=== PATIENT | male | born 1940 | race Caucasian/White ===

== ENCOUNTER 2019-09-11 21:39 | Emergency (ER) | payer MEDICARE ==
--- NOTE | 2019-09-11 22:47 | ED Physician Documentation ---
PD HPI HEAD INJURY - Stated complaint Stated Complaint: CANT SLEEP/FALL/NECK PX - Chief complaint Chief Complaint: Trauma Hd/Nk - History obtained from History obtained from: Patient - History of Present Illness Mechanism of head injury: Fell Where head injury occurred: Home Timing - onset: Enter time (1400), Today Location of injury: Back Quality of pain: Pain Associated symptoms: Neck pain, Other (dizziness and headache). No: LOC, AMS, Amnesia, Nausea / vomiting, Paresthesias, Seizures, Ear drainage, Nasal drainage Symptoms improve with: Rest Symptoms worsen with: Palpation, Movement Contributing factors: No: Anticoagulated Similar symptoms before: Has not had sx before Recently seen: Not recently seen - Additional information Additional information: Previously well 79-year-old male was out on a walk he attempted to do some social distancing when talking to somebody he backed up and fell over backwards onto his side down a hill. He hit the back of his head he did not have any loss of consciousness associated with this but he does have some dizziness associated with it headache and he denies nausea or difficulty concentrating. This occurred at 2 PM. The patient in addition notes that he has had trouble sleeping for the past 3 nights as he is recently started escitalopram. He was starting this for anxiety. He also started tamsulosin at the same time. He has been unable to sleep the past 3 nights because each time he rolls over he has to get up to go to the bathroom. He states that he has been able to quell this issue with getting up to go to the bathroom by taking 10 mg of THC at night. He stopped this about 3 nights ago. He is decided he will stop his escitalopram today.He does state that he does not feel that he has urinary tract infection he has never had an infection previously and he does not feel that he has any pain with urination just an irritation caused by movement that he has had previously. Review of Systems Constitutional: denies: Fever, Chills, Myalgias Eyes: denies: Decreased vision Ears: denies: Ear pain Nose: denies: Rhinorrhea / runny nose, Congestion Throat: denies: Sore throat Cardiac: denies: Chest pain / pressure, Palpitations Respiratory: denies: Dyspnea, Cough GI: denies: Abdominal Pain, Nausea, Vomiting : reports: Frequency. denies: Dysuria Skin: denies: Rash Musculoskeletal: reports: Neck pain. denies: Back pain, Extremity pain Neurologic: denies: Generalized weakness, Focal weakness, Numbness PD PAST MEDICAL HISTORY - Past Medical History Past Medical History: Yes Cardiovascular: High cholesterol - Past Surgical History Past Surgical History: Yes - Present Medications Home Medications: Ambulatory Orders Medication Instructions Recorded Confirmed Aspirin 81 mg PO 03/31/13 03/31/13 Pravastatin Sodium 10 mg PO 03/31/13 03/31/13 Meclizine HCl [Medi-Meclizine] 25 - 50 mg PO Q6HR PRN #20 tablet 04/01/13 Cyclobenzaprine [Flexeril] 10 mg PO TID PRN #20 tablet 09/12/19 Hydrocodone/Acetaminophen 1 - 2 each PO Q6H PRN #14 tablet 09/12/19 [Hydrocodon-Acetaminophen 5-325] - Allergies Allergies/Adverse Reactions: Allergies Allergy/AdvReac Type Severity Reaction Status Date / Time No Known Drug Allergies Allergy Verified 09/11/19 21:46 - Social History Does the pt smoke?: No Smoking Status: Never smoker Does the pt drink ETOH?: Yes Does the pt have substance abuse?: Yes Substance Use and Type: Marijuana - Immunizations Immunizations are current?: Yes - POLST Patient has POLST: No PD ED PE NORMAL - Vitals Vital signs reviewed: Yes (hypertensive) - General General: Alert and oriented X 3, No acute distress, Well developed/nourished - HEENT HEENT: PERRL, EOMI, Other (There is no ecchymosis swelling or specific point tenderness to the back of the head. The patient is unable to discern exactly where his head hit. He does have general headache. TMs are both obscured by cerumen.) - Neck Neck: Supple, no meningeal sign, No bony TTP, Other (There is tenderness to the paraspinous muscles of the neck especially lower.) - Cardiac Cardiac: RRR, No murmur - Respiratory Respiratory: No respiratory distress, Clear bilaterally - Abdomen Abdomen: Soft, Non tender - Back Back: No CVA TTP, No spinal TTP - Derm Derm: Normal color, Warm and dry, No rash - Extremities Extremities: No deformity, No edema, No calf tenderness / cord - Neuro Neuro: Alert and oriented X 3, home care rn 2-12 intact, No motor deficit, No sensory deficit, Normal speech Eye Opening: Spontaneous Motor: Obeys Commands Verbal: Oriented GCS Score: 15 - Psych Psych: Normal mood, Normal affect Results - Vitals Vitals: Vital Signs - 24 hr 09/11/19 09/11/19 21:46 23:06 Temperature 36.7 C Heart Rate 75 63 Respiratory 14 18 Rate Blood Pressure 167/89 H 160/83 H O2 Saturation 99 100 Oxygen O2 Source Room air - Labs Labs: Laboratory Tests 09/11/19 23:25 Urine Color YELLOW Urine Clarity CLEAR Urine pH 6.5 Ur Specific [place] 1.020 Urine Protein NEGATIVE Urine Glucose (UA) NEGATIVE Urine Ketones TRACE Urine Occult Blood SMALL H Urine Nitrite NEGATIVE Urine Bilirubin NEGATIVE Urine Urobilinogen 0.2 (NORMAL) Ur Leukocyte Esterase NEGATIVE Urine RBC 0-5 Urine WBC 0-3 Ur Squamous Epith Cells NONE SEEN Urine Bacteria None Seen Ur Microscopic Review INDICATED Urine Culture Comments NOT INDICATED - Rads (name of study) CT cervical spine Radiology: Prelim report reviewed (Impression: 1. No acute fracture. 2. Severe spondylolysis.), EMP read indepedently, See rad report CT head without Radiology: Prelim report reviewed (Impression: 1. No acute intracranial abnormality. Age-appropriate exam. 2. Mild midline posterior parietal scalp soft tissue swelling without underlying fracture.), EMP read indepedently, See rad report PD MEDICAL DECISION MAKING - ED course Complexity details: reviewed old records, reviewed results, re-evaluated patient, considered differential, d/w patient ED course: 79-year-old male with a fall onto the back of his head with persistent dizziness and headache has a negative CT of his head and neck and his complaint of urinary frequency is likely as he describes it related to movement causing irritation of the prostate. His urinalysis is negative. He will resume his prior use of THC for sleep. He is given instructions for concussion. His chief complaint at this point is neck pain and this is bad enough that he requests medications for pain. He is sent home with a prepack for Flexeril and Vicodin. Departure - Departure Disposition: 01 Home, Self Care Clinical Impression: Concussion Qualifiers: Encounter type: initial encounter Loss of consciousness presence/duration: without LOC Qualified Code(s): S06.0X0A - Concussion without loss of consciousness, initial encounter Cervical strain, acute Qualifiers: Encounter type: initial encounter Qualified Code(s): S16.1XXA - Strain of muscle, fascia and tendon at neck level, initial encounter Condition: Stable Instructions: ED Concussion, ED Sprain Strain Neck Follow-Up: Rigo Rivas MD [Primary Care Provider] - Prescriptions: Cyclobenzaprine [Flexeril] 10 mg PO TID PRN #20 tablet PRN Reason: Spasms Hydrocodone/Acetaminophen [Hydrocodon-Acetaminophen 5-325] 1 - 2 each PO Q6H PRN #14 tablet PRN Reason: pain
[2019-09-11 23:37] LABS: BILIRUBIN,URINE NEGATIVE (NEGATIVE); GLUCOSE, URINE (UA) NEGATIVE (NEGATIVE); KETONES,URINE (UA) TRACE mg/dL (NEGATIVE); LEUKOCYTE ESTERASE, URINE NEGATIVE (NEGATIVE); NITRITE,URINE NEGATIVE (NEGATIVE); OCCULT BLOOD,URINE SMALL (NEGATIVE); PH,URINE 6.5 PH (5.0-7.5); PROTEIN,URINE NEGATIVE (NEGATIVE); UROBILINOGEN,URINE 0.2 (NORMAL) E.U./dL (NORMAL)
[2019-09-11 23:38] LABS: CLARITY,URINE CLEAR (CLEAR)
[2019-09-11 23:46] LABS: BACTERIA,URINE None Seen /HPF (None Seen); RBC,URINE 0-5 /HPF (0-5); SQUAMOUS EPITHELIAL CELL,UR NONE SEEN (<= Few)
[2019-09-12] MEDS ORDERED: HYDROcod/ACET 5/325 Prepack 4 PO STA (00:07)
[2019-09-12] MEDS ORDERED: CYCLOBENZAPRINE 10 MG Prepack 2 PO PRN (00:07)
[2019-09-12 00:39] VITALS: BP 143/78
--- NOTE | 2019-09-12 07:37 | CT Report ---
PROCEDURE: HEAD WO INDICATIONS: polytrauma, critical, head TECHNIQUE: Noncontrast 4.5 mm thick angled axial sections acquired from the foramen magnum to the vertex. For r adiation dose reduction, the following was used: automated exposure control, adjustment of mA and/or kV according to patient size. COMPARISON: CT head 03/31/2013, MR brain 04/01/2013. FINDINGS: Image quality: Excellent. The ventricular system and cortical sulci demonstrate atrophy, consistent for patient's stated age. There are areas of hypodensity in the periventricular and subcortical white matter. There is no acut e intra or extra-axial fluid collection. No acute hemorrhage, mass lesion or midline shift. Brainst em is unremarkable. There Globes are symmetrical. Sinuses demonstrate minimal frontal and ethmoid m ucosal thickening. Osseous structures are intact. Posterior scalp soft tissue edema is present. IMPRESSION: 1. No acute intracranial process. 2. Moderate atrophy and chronic microvascular ischemic changes. 3. Parietal posterior scalp hematoma. The above findings are concordant with preliminary report. Reviewed by: Meredith Townsend MD on 09/12/2019 7:36 AM PDT Approved by: Meredith Townsend MD on 09/12/2019 7:36 AM PDT Station ID: [id number]
--- NOTE | 2019-09-12 07:46 | CT Report ---
PROCEDURE: CERVICAL SPINE WO INDICATIONS: polytrauma, critical head and neck TECHNIQUE: Noncontrast 3 mm thick sections acquired from the skull base to the T4 level. Sagittal and coronal r eformats were then constructed. For radiation dose reduction, the following was used: automated exp osure control, adjustment of mA and/or kV according to patient size. COMPARISON: CT brain 09/11/2019 FINDINGS: Image quality: Excellent. Bones: No fractures or dislocations. Visualized superior ribs are intact. Multilevel degenerative disc space narrowing is present most prominent at C5-6 and C6-7. Prominent bridging anterior osteophy jluis are present at C6-7. Soft tissues: Prevertebral soft tissues are normal in thickness. No paravertebral hematomas. No ap ical pneumothoraces. Biapical scarring is present. IMPRESSION: 1. Multilevel degenerative changes without visualized fracture. The above findings are concordant with preliminary report. Reviewed by: Meredith Townsend MD on 09/12/2019 7:45 AM PDT Approved by: Meredith Townsend MD on 09/12/2019 7:45 AM PDT Station ID: [id number]
== END 2019-09-12 00:45 | disposition home or self-care (01) ==
LOC: ED 21:39
DX: S06.0X0A Concussion without loss of consciousness, initial encounter (principal); S16.1XXA Strain of muscle, fascia and tendon at neck level, initial encounter; W01.0XXA Fall on same level from slipping, tripping and stumbling without subsequent striking against object, initial encounter; Y93.01 Activity, walking, marching and hiking; Y92.007 Garden or yard of unspecified non-institutional (private) residence as the place of occurrence of the external cause; M47.812 Spondylosis without myelopathy or radiculopathy, cervical region; R35.0 Frequency of micturition; G47.00 Insomnia, unspecified
CPT/HCPCS: 70450; 72125; 81001; 81003; 87086; 99284

== ENCOUNTER 2019-09-16 07:02 | Outpatient (CLI) | payer MEDICARE ==
[2019-09-16 15:25] LABS: BILIRUBIN,URINE NEGATIVE (NEGATIVE); GLUCOSE, URINE (UA) NEGATIVE (NEGATIVE); KETONES,URINE (UA) NEGATIVE (NEGATIVE); LEUKOCYTE ESTERASE, URINE NEGATIVE (NEGATIVE); NITRITE,URINE NEGATIVE (NEGATIVE); OCCULT BLOOD,URINE NEGATIVE (NEGATIVE); PROTEIN,URINE NEGATIVE (NEGATIVE); UROBILINOGEN,URINE 0.2 (NORMAL) E.U./dL (NORMAL)
[2019-09-16 15:39] LABS: BACTERIA,URINE None Seen /HPF (None Seen); CLARITY,URINE CLEAR (CLEAR); RBC,URINE None Seen /HPF (0-5); SQUAMOUS EPITHELIAL CELL,UR NONE SEEN (<= Few)
[2019-09-16 15:43] LABS: CHOL/HDL RATIO 2.5 (<5.0); CHOLESTEROL 221 mg/dL; GLUCOSE,FASTING 93 mg/dL (70-100); HDL CHOLESTEROL 90 mg/dL; LDL CHOLESTEROL,CALCULATED 119 mg/dL; LDL/HDL RATIO 1.3 (<3.6); VLDL CHOLESTEROL 12 mg/dL
[2019-09-16 16:26] LABS: HB2 TOTAL 13.6 g/dL; HEMOGLOBIN A1C 0.58 g/dL; HEMOGLOBIN A1C % 6.1 % (4.6-6.2)
== END 2019-09-16 07:03 | disposition home or self-care (01) ==
LOC: LAB.S 07:02
PROVIDERS: ATTEND Internal Medicine
DX: Z13.6 Encounter for screening for cardiovascular disorders (principal); Z13.1 Encounter for screening for diabetes mellitus
CPT/HCPCS: 36415; 80061; 81001; 82947; 83036; 83721; 87086

== ENCOUNTER 2021-02-19 08:00 | Outpatient (CLI) | payer MEDICARE ==
[2021-02-19 15:15] LABS: BILIRUBIN,URINE NEGATIVE (NEGATIVE); GLUCOSE, URINE (UA) NEGATIVE (NEGATIVE); KETONES,URINE (UA) NEGATIVE (NEGATIVE); LEUKOCYTE ESTERASE, URINE NEGATIVE (NEGATIVE); NITRITE,URINE NEGATIVE (NEGATIVE); OCCULT BLOOD,URINE NEGATIVE (NEGATIVE); PROTEIN,URINE NEGATIVE (NEGATIVE); UROBILINOGEN,URINE 0.2 (NORMAL) E.U./dL (NORMAL)
[2021-02-19 15:44] LABS: CLARITY,URINE CLEAR (CLEAR)
== END 2021-02-19 23:59 ==
LOC: LAB.R 08:00
PROVIDERS: ATTEND Urology
DX: N40.1 Benign prostatic hyperplasia with lower urinary tract symptoms (principal); N13.8 Other obstructive and reflux uropathy
CPT/HCPCS: 81001; 81003; 87086

== ENCOUNTER 2021-03-01 20:17 | Emergency (ER) | payer MEDICARE ==
[2021-03-01 20:37] LABS: BASOPHILS # (AUTO) 0.1 10^3/uL (0.0-0.1); BASOPHILS % (AUTO) 1.1 %; EOSINOPHILS # (AUTO) 0.3 10^3/uL (0.0-0.7); EOSINOPHILS % (AUTO) 4.1 %; HGB - HEMOGLOBIN 14.5 g/dL (14.0-18.0); LYMPHOCYTES # (AUTO) 2.6 10^3/uL (1.5-3.5); LYMPHOCYTES % (AUTO) 42.1 %; MEAN CORPUSCULAR HEMOGLOBIN 31.3 pg (27.0-31.0); MEAN CORPUSCULAR HGB CONC 34.5 g/dL (32.0-36.0); MEAN CORPUSCULAR VOLUME 90.7 fL (80.0-94.0); MONOCYTES # (AUTO) 0.5 10^3/uL (0.0-1.0); MONOCYTES % (AUTO) 8.1 %; NEUTROPHILS # (AUTO) 2.8 10^3/uL (1.5-6.6); NEUTROPHILS % (AUTO) 44.4 %; PLT - PLATELET COUNT 183 10^3/uL (130-450); RED BLOOD COUNT 4.63 10^6/uL (4.70-6.10); RED CELL DISTRIBUTION WIDTH 14.2 % (12.0-15.0); WHITE BLOOD COUNT 6.3 x10^3/uL (4.8-10.8)
--- NOTE | 2021-03-01 20:40 | ED Physician Documentation ---
History of Present Illness - Stated complaint Stated Complaint: ELEVATED HEART RATE - Chief complaint Chief Complaint: Cardiac - History obtained from History obtained from: Patient - History of Present Illness Timing: Other (this evening) Pain level max: 0 Pain level now: 0 - Additonal information Additional information: patient noted that this evening his Apple watch was indicating a pulse rate in the 110s. he was, and remains, asymptomatic. He contacted the [employer] help line and was advised to come to ED. Patient denies h/o cardiac problems including arrhythmia. He denies chest pain, dyspnea. Review of Systems Cardiac: reports: Reviewed and negative Respiratory: reports: Reviewed and negative Musculoskeletal: denies: Extremity swelling PD PAST MEDICAL HISTORY - Past Medical History Cardiovascular: High cholesterol - Past Surgical History Past Surgical History: Yes - Present Medications Home Medications: Ambulatory Orders Medication Instructions Recorded Confirmed Finasteride [Proscar] 5 mg PO DAILY 03/01/21 03/01/21 Rivaroxaban [Xarelto] 20 mg PO DAILY #30 tablet 03/01/21 Tamsulosin [Flomax] 0.8 mg PO DAILY 03/01/21 03/01/21 methocarbamoL [Methocarbamol] 750 mg PO Q8HR PRN 03/01/21 03/01/21 - Allergies Allergies/Adverse Reactions: Allergies Allergy/AdvReac Type Severity Reaction Status Date / Time No Known Drug Allergies Allergy Verified 09/11/19 21:46 - Social History Does the pt smoke?: No Smoking Status: Never smoker Does the pt drink ETOH?: Yes Does the pt have substance abuse?: Yes - Immunizations Immunizations are current?: Yes - POLST Patient has POLST: No PD ED PE NORMAL - Vitals Vital signs reviewed: Yes - General General: Alert and oriented X 3, No acute distress, Well developed/nourished - Cardiac Cardiac: No murmur, No gallop, No rub - Respiratory Respiratory: No respiratory distress, Clear bilaterally PD ED PE EXPANDED - Cardiac Cardiac: Regular Rate, Abnormal Rhythm. No: Murmur Present Results - Vitals Vitals: Vital Signs - 24 hr 03/01/21 03/01/21 03/01/21 20:26 20:57 21:00 Temperature 36.2 C L Heart Rate 118 H 89 83 Respiratory 18 21 14 Rate Blood Pressure 185/125 H 172/91 H 162/92 H O2 Saturation 100 100 100 03/01/21 03/01/21 03/01/21 21:37 22:00 23:00 Temperature Heart Rate 71 81 101 H Respiratory 12 13 16 Rate Blood Pressure 150/95 H 147/79 H 153/86 H O2 Saturation 100 99 99 Oxygen O2 Source Room air - EKG (time done) No standard instances Rate: Rate (enter#) Rhythm: Atrial flutter, Atrial fibrillation [place]: Normal QRS: Normal Computer interpretation: Disagree with computer (no ST changes) - Labs Labs: Laboratory Tests 03/01/21 03/01/21 03/01/21 20:31 20:31 20:31 WBC 6.3 RBC 4.63 L Hgb 14.5 Hct 42.0 MCV 90.7 MCH 31.3 H MCHC 34.5 RDW 14.2 Plt Count 183 MPV 9.0 Neut # (Auto) 2.8 Lymph # (Auto) 2.6 [place] # (Auto) 0.5 Eos # (Auto) 0.3 Baso # (Auto) 0.1 Absolute Nucleated RBC 0.00 Nucleated RBC % 0.0 Sodium 128 L Potassium 4.0 Chloride 92 L Carbon Dioxide 26 Anion Gap 10.0 BUN 20 Creatinine 0.8 Estimated GFR (MDRD) 93 Glucose 111 H Calcium 9.3 Magnesium 2.1 Troponin I High Sens TSH 4.42 03/01/21 21:28 WBC RBC Hgb Hct MCV MCH MCHC RDW Plt Count MPV Neut # (Auto) Lymph # (Auto) [place] # (Auto) Eos # (Auto) Baso # (Auto) Absolute Nucleated RBC Nucleated RBC % Sodium Potassium Chloride Carbon Dioxide Anion Gap BUN Creatinine Estimated GFR (MDRD) Glucose Calcium Magnesium Troponin I High Sens 32.0 H* TSH PD MEDICAL DECISION MAKING - ED course Complexity details: reviewed results, re-evaluated patient, considered differential, d/w patient ED course: patient presents with asymptomatic elevated heart rate (as recorded by his Apple watch). He is found to be in an abnormal rhythm during ED stay, appears to be mostly atrial flutter on monitor with periods of atrial fibrillation. EKG has similar appearance. I contacted Dr. Wilkins (device sales consultant cardiology at [facility]) for consult and sent images of two EKGs and a rhythm strip and he says this appears c/w atrial flutter with variable block, recommend anticoagulation with eliquis or xarelto after discussion of risks/benefits. I discussed this with patient, including diagnosis, recommendation for anticoagulant, and risks/benefits of this medication as well as declining the medication. His CHADS-vasc score is 2.2%. Patient agrees with the recommendation and opts for xarelto. Dose given in ED (15mg tab given as this was the only dosage available), and rx for 20mg QD xarelto sent to his pharmacy. Instructed to follow up with his PMD as soon as can be arranged. Departure - Departure Disposition: Home, Self Care Clinical Impression: Atrial flutter Qualifiers: Atrial flutter type: typical Qualified Code(s): I48.3 - Typical atrial flutter Condition: Good Instructions: Rivaroxaban oral tablets, ED Paroxysmal Atrial Flutter Prescriptions: Rivaroxaban [Xarelto] 20 mg PO DAILY #30 tablet Comments: You will need to follow up with cardiology, which requires a referral from your insurance provider. Contact your insurance provider or your primary care provider to inquire about a referral to cardiology. A prescription for the blood thinner (rivaroxaban, brand name Xarelto) has been electronically submitted to [facility] pharmacy in [place] Discharge Date/Time: 03/01/21 23:34
[2021-03-01 20:47] LABS: CALCIUM 9.3 mg/dL (8.5-10.3); CREATININE 0.8 mg/dL (0.6-1.2); MAGNESIUM 2.1 mg/dL (1.7-2.8)
[2021-03-01] MEDS ORDERED: RIVAROXABAN 15 MG TABLET PO STA ×2 (22:44→23:20)
[2021-03-01 23:18] VITALS: BP 153/86
== END 2021-03-01 23:34 | disposition home or self-care (01) ==
LOC: ED 20:17
DX: I48.3 Typical atrial flutter (principal); Z79.01 Long term (current) use of anticoagulants
CPT/HCPCS: 36415; 80048; 83735; 84443; 84484; 85025; 93005; 99283; 99284; A9270

== ENCOUNTER 2021-03-03 20:40 | Emergency (ER) | payer MEDICARE ==
[2021-03-03] MEDS ORDERED: LORazepam 1 MG TABLET PO STA (21:35)
[2021-03-03] MEDS ORDERED: METOPROLOL SUCCINATE 25 MG TABLET PO STA (21:37)
--- NOTE | 2021-03-03 21:39 | ED Physician Documentation ---
History of Present Illness - Stated complaint Stated Complaint: HIGH BP/HR,BACK PX, - Chief complaint Chief Complaint: Cardiac - History obtained from History obtained from: Patient - Additonal information Additional information: Patient comes emergency department for chief complaint of heart rate but blood pressure elevated. He was just seen here a couple of days ago for new onset atrial fibrillation was in RVR at that time. His labs had looked good and the case had been discussed with cardiology, who recommended Xarelto. The patient was not started on anything for rate control at that time. He states his rate was pretty good yesterday, but today, his little dog unexpectedly and His heart rate and blood pressure been up since. The patient still been in atrial fibrillation. He has not yet seen his primary care physician or cleaning and maintenance worker. He denies any chest pain shortness of breath. No other symptoms. Patient states he is otherwise fairly healthy and does not generally take any medications for anything. He has had some urinary retention from prostatic hypertrophy and is followed by urology with this. He has had good urine output from his indwelling Rene catheter. He states that he has occasional mild edema in his lower extremities but that right now, is doing pretty well. The patient does note that he injured his back sometime ago and he has been having some back pain which is robbed him of some sleep. He states has not been able to sleep well for about the last 4 nights and that he would like to be able to sleep a little better. No other complaints at this time. Review of Systems Ten Systems: 10 systems reviewed and negative Constitutional: reports: Reviewed and negative Eyes: reports: Reviewed and negative Ears: reports: Reviewed and negative Nose: reports: Reviewed and negative Throat: reports: Reviewed and negative Cardiac: reports: Reviewed and negative Respiratory: reports: Reviewed and negative GI: reports: Reviewed and negative : reports: Reviewed and negative Skin: reports: Reviewed and negative Musculoskeletal: reports: Reviewed and negative Neurologic: reports: Reviewed and negative Psychiatric: reports: Reviewed and negative Endocrine: reports: Reviewed and negative Immunocompromised: reports: Reviewed and negative PD PAST MEDICAL HISTORY - Past Medical History Past Medical History: Yes Cardiovascular: High cholesterol, Atrial flutter, Atrial fibrillation : Benign prostate hypertrophy Musculoskeletal: Other Other Past Medical History: Lower back pain - Past Surgical History Past Surgical History: Yes - Present Medications Home Medications: Ambulatory Orders Medication Instructions Recorded Confirmed Finasteride [Proscar] 5 mg PO DAILY 12/10/21 12/12/21 Rivaroxaban [Xarelto] 20 mg PO DAILY #30 tablet 03/01/21 03/03/21 Tamsulosin [Flomax] 0.8 mg PO DAILY 03/01/21 03/03/21 methocarbamoL [Methocarbamol] 750 mg PO Q8HR PRN 03/01/21 03/03/21 Metoprolol Succinate [Kapspargo 25 mg PO DAILY #30 03/03/21 Sprinkle] - Allergies Allergies/Adverse Reactions: Allergies Allergy/AdvReac Type Severity Reaction Status Date / Time No Known Drug Allergies Allergy Verified 03/03/21 20:46 - Social History Does the pt smoke?: No Smoking Status: Never smoker Does the pt drink ETOH?: Yes ETOH Use: Wine Does the pt have substance abuse?: Yes - Immunizations Immunizations are current?: Yes - POLST Patient has POLST: No PD ED PE NORMAL - Vitals Vital signs reviewed: Yes - General General: Alert and oriented X 3, No acute distress, Well developed/nourished - HEENT HEENT: Atraumatic, PERRL, EOMI, Moist mucous membranes - Neck Neck: Supple, no meningeal sign - Cardiac Cardiac: No murmur, Strong equal pulses, Other (Irregular rhythm mildly tachycardic rate) - Respiratory Respiratory: No respiratory distress, Clear bilaterally - Abdomen Abdomen: Soft, Non tender, Non distended - Derm Derm: Normal color, Warm and dry, No rash - Extremities Extremities: No deformity, No edema, No calf tenderness / cord - Neuro Neuro: Alert and oriented X 3, fresco artist 2-12 intact, Normal speech - Psych Psych: Normal mood, Normal affect Results - Vitals Vitals: Vital Signs - 24 hr 03/03/21 03/03/21 03/03/21 20:43 20:54 21:11 Temperature 36.4 C L Heart Rate 121 H 115 H Respiratory 18 12 Rate Blood Pressure 166/103 H 161/106 H Blood Pressure 161/106 H [Left] Blood Pressure 177/111 H [Right] O2 Saturation 99 97 03/03/21 03/03/21 21:57 22:30 Temperature 36.2 C L Heart Rate 94 83 Respiratory 17 17 Rate Blood Pressure 157/91 H 140/102 H Blood Pressure [Left] Blood Pressure [Right] O2 Saturation 99 100 Oxygen O2 Source Room air - EKG (time done) 2047 Rate: Rate (enter#) (103) Rhythm: Atrial flutter [place]: Normal QRS: Normal Ischemia: Normal ST segments, ST elevation c/w repol Compare to prior EKG: Other (Still in a flutter, compared with prior EKG from 2 days ago.) Computer interpretation: Disagree with computer (Disagree with the interpretation sinus tachycardia with irregular rate; appearance is of atrial flutter. Also disagree with "acute [place]".) PD MEDICAL DECISION MAKING - ED course Complexity details: reviewed old records, reviewed results, re-evaluated patient, considered differential, d/w patient ED course: The patient's EKG showed atrial flutter at baseline. His labs look very good a couple days ago on my review, and I did not feel these needed to be repeated. I felt the patient would benefit from a low-dose of something for rate control, and I did agree to give him something for sleep to. Was given doses of metoprolol and Ativan here in the emergency department. We have discussed home management and symptoms and the need for follow-up, as well as the usual i ndications for return. Departure - Departure Disposition: 01 Home, Self Care Clinical Impression: Atrial fibrillation with RVR, Grief reaction Hypertension Qualifiers: Hypertension type: unspecified Qualified Code(s): I10 - Essential (primary) hypertension Back pain Qualifiers: Back pain location: low back pain Chronicity: unspecified Back pain laterality: right Sciatica presence: without sciatica Qualified Code(s): M54.50 - Low back pain, unspecified Condition: Stable Instructions: ED Afib, ED Neck Back Pain General Prescriptions: Metoprolol Succinate [Kapspargo Sprinkle] 25 mg PO DAILY #30 Comments: Your labs look great a couple of days ago when you were here, and your heart rate is not for ethically high. However, it is sustaining a higher than normal rate most of the time and is probably a good idea for you to be on a low dose of medicine to help control this. It is also possible that due to the upsetting events today, your heart rate and blood pressure both higher than the other which would be. You may fill your prescription tomorrow begin taking the medication prescribed. You have been given your first dose tonight. Please schedule an appointment as soon as possible to follow-up with your primary care physician, even if you are waiting to be seen by cardiology. If you develop fainting episodes, chest pain, shortness of breath, or if your heart rate is excessively high despite the medication please return to the emergency department. Discharge Date/Time: 03/03/21 22:32
[2021-03-03 22:38] VITALS: BP 140/102
== END 2021-03-03 22:32 | disposition home or self-care (01) ==
LOC: ED 20:40
DX: I48.91 Unspecified atrial fibrillation (principal); I10 Essential (primary) hypertension; M54.50 Low back pain, unspecified; F43.20 Adjustment disorder, unspecified
CPT/HCPCS: 93005; 99283; 99284; A9270; J8499

== ENCOUNTER 2022-01-07 08:00 | Outpatient (CLI) | payer MEDICARE ==
[2022-01-09 13:10] LABS: GIARDIA LAMBLIA AG EIA Negative (Negative)
== END 2022-01-07 23:59 | disposition home or self-care (01) ==
LOC: LAB.R 08:00
PROVIDERS: ATTEND Internal Medicine
DX: R19.7 Diarrhea, unspecified (principal); I48.91 Unspecified atrial fibrillation; Z13.220 Encounter for screening for lipoid disorders
CPT/HCPCS: 83630; 87045; 87046; 87177; 87329; 87427; 87493

== ENCOUNTER 2023-02-11 08:30 | Outpatient (CLI) | payer MEDICARE ==
[2023-02-11 14:38] LABS: BASOPHILS # (AUTO) 0.1 10^3/uL (0.0-0.1); EOSINOPHILS # (AUTO) 0.2 10^3/uL (0.0-0.7); EOSINOPHILS % (AUTO) 4.7 %; HGB - HEMOGLOBIN 12.8 g/dL (14.0-18.0); LYMPHOCYTES # (AUTO) 2.1 10^3/uL (1.5-3.5); LYMPHOCYTES % (AUTO) 40.1 %; MEAN CORPUSCULAR HEMOGLOBIN 30.9 pg (27.0-31.0); MEAN CORPUSCULAR VOLUME 96.6 fL (80.0-94.0); MEAN PLATELET VOLUME 9.9 fL (7.4-11.4); MONOCYTES # (AUTO) 0.5 10^3/uL (0.0-1.0); MONOCYTES % (AUTO) 9.8 %; NEUTROPHILS # (AUTO) 2.3 10^3/uL (1.5-6.6); PLT - PLATELET COUNT 205 10^3/uL (130-450); RED BLOOD COUNT 4.14 10^6/uL (4.70-6.10); RED CELL DISTRIBUTION WIDTH 14.2 % (12.0-15.0); WHITE BLOOD COUNT 5.1 x10^3/uL (4.8-10.8)
[2023-02-11 14:59] LABS: INR 1.2 (0.8-1.2); PT - PROTHROMBIN TIME 12.7 secs (9.9-12.6)
[2023-02-11 15:11] LABS: ALBUMIN 4.2 g/dL (3.2-5.5); ALBUMIN/GLOBULIN RATIO 2.2 (1.0-2.2); BILIRUBIN,TOTAL 0.7 mg/dL (0.2-1.0); CALCIUM 9.5 mg/dL (8.5-10.3); CREATININE 0.8 mg/dL (0.6-1.3); POTASSIUM 4.3 mmol/L (3.5-4.5); TOTAL PROTEIN 6.1 g/dL (6.4-8.9)
== END 2023-02-11 08:31 | disposition home or self-care (01) ==
LOC: LAB.S 08:30
PROVIDERS: ATTEND Internal Medicine
DX: I48.91 Unspecified atrial fibrillation (principal)
CPT/HCPCS: 36415; 80053; 85025; 85610; 85730

== ENCOUNTER 2023-10-16 15:46 | Outpatient (CLI) | payer MEDICARE | END 2023-10-16 15:47 | disposition home or self-care (01) | LOC: LAB.S 15:46 | PROVIDERS: ATTEND Internal Medicine | DX: R19.7 Diarrhea, unspecified (principal) ==

== ENCOUNTER 2023-10-17 09:22 | Emergency (ER) | payer MEDICARE ==
[2023-10-17 09:55] VITALS: BP 132/55; O2SAT 99
--- NOTE | 2023-10-17 10:45 | ED Physician Documentation ---
PD HPI LOWER EXT INJURY - Stated complaint Stated Complaint: LT ANKLE INJ - Chief complaint Chief Complaint: Trauma Ext - History obtained from History obtained from: Patient (Twisted his ankle and has pain of the medial left foot now really only with weightbearing. He is able to walk. No other injuries.) PD PAST MEDICAL HISTORY - Past Medical History Past Medical History: Yes Cardiovascular: High cholesterol, Atrial flutter, Atrial fibrillation : Benign prostate hypertrophy Musculoskeletal: Other - Past Surgical History Past Surgical History: Yes - Present Medications Home Medications: Ambulatory Orders Medication Instructions Recorded Confirmed Finasteride [Proscar] 5 mg PO DAILY 03/01/21 03/03/21 Rivaroxaban [Xarelto] 20 mg PO DAILY #30 tablet 03/01/21 03/03/21 Tamsulosin [Flomax] 0.8 mg PO DAILY 03/01/21 03/03/21 methocarbamoL [Methocarbamol] 750 mg PO Q8HR PRN 03/01/21 03/03/21 Metoprolol Succinate [Kapspargo 25 mg PO DAILY #30 03/03/21 Sprinkle] - Allergies Allergies/Adverse Reactions: Allergies Allergy/AdvReac Type Severity Reaction Status Date / Time No Known Drug Allergies Allergy Verified 10/17/23 09:49 - Social History Does the pt smoke?: No Smoking Status: Never smoker Does the pt drink ETOH?: Yes Does the pt have substance abuse?: Yes - Immunizations Immunizations are current?: Yes - POLST Patient has POLST: No PD ED PE NORMAL - Vitals Vital signs reviewed: Yes - General General: Alert and oriented X 3, No acute distress - Extremities Extremities: Other (Tender over the first metatarsal medially and pain with external rotation of the foot. The ankle itself is nontender.) - Neuro Neuro: Alert and oriented X 3, Normal speech Results - Vitals Vitals: Vital Signs - 24 hr 10/17/23 09:47 Temperature 36.4 C L Heart Rate 63 Respiratory 20 Rate Blood Pressure 132/55 H O2 Saturation 99 Oxygen O2 Source Room air - Rads (name of study) Three-view x-ray left foot negative save vascular calcifications. Relevant Findings:: Final report received, EMP independent interpretation of test Departure - Departure Disposition: 01 Home, Self Care Clinical Impression: Sprain of left foot Qualifiers: Encounter type: initial encounter Qualified Code(s): S93.602A - Unspecified sprain of left foot, initial encounter Condition: Good Record reviewed to determine appropriate education?: Yes Instructions: ED Sprain Ankle W X Ray Comments: That thing I showed you on the x-ray is actually a vascular calcification which is not significantly an abnormal finding at the age of 83. Tylenol as needed for pain. Walk and bear weight as tolerated. Return for new or worsening symptoms. Follow-up with your doctor in a week if not better. Forms: PCP List
--- NOTE | 2023-10-17 12:04 | XRAY Report ---
PROCEDURE: Foot 3+V LT INDICATIONS: foot inj TECHNIQUE: 3 views of the foot were obtained. COMPARISON: None FINDINGS: Bones: No fractures or dislocations. No suspicious bony lesions. Soft tissues: Unremarkable. No radiopaque foreign body. Diffuse small vessel atherosclerotic vascular calcification IMPRESSION: No acute fracture or foreign body Reviewed by: Mike Decker MD on 10/17/2023 11:03 AM AKKAI Approved by: Mike Decker MD on 10/17/2023 11:03 AM AKDT Station ID: [id number]
== END 2023-10-17 12:45 | disposition home or self-care (01) ==
LOC: ED 09:22
DX: S93.402A Sprain of unspecified ligament of left ankle, initial encounter (principal); X50.1XXA Overexertion from prolonged static or awkward postures, initial encounter; E78.00 Pure hypercholesterolemia, unspecified; I48.91 Unspecified atrial fibrillation; I48.92 Unspecified atrial flutter; N40.0 Benign prostatic hyperplasia without lower urinary tract symptoms; Z79.01 Long term (current) use of anticoagulants; Z79.899 Other long term (current) drug therapy
CPT/HCPCS: 99283